=== PATIENT | female | born 1965 | race Caucasian/White ===

== ENCOUNTER 2019-01-07 16:11 | Inpatient (IN) ==
[2019-01-07] MEDS ORDERED: ASPIRIN PO ONE (17:49)
--- NOTE | 2019-01-07 18:39 | ED EKG INTERP ---
This chart was entered by Jena Billy Scribe, acting as scribe for Nish Davenport MD. EKG Interpretation - EKG Time of EKG reading by physician:: 17:06 EKG Read and Signed by:: Nish Davenport EKG Interpretation (*Must complete 3 of following elements*): Normal Rate: 89 (EARLY TRANSITION) Rhythm: NSR [place]: normal QRS: normal [place] Interval: normal ST Wave: normal Comments: DOC Attestation - Physician/ NORRIS Attestation Patient care was provided by Advanced Practice Provider:: No The physician spent face to face time with patient:: Yes Advanced Practice Provider documentation review:: Supervising physician onsite and consulted in the evaluation and care of this patient. The physician did have a face to face encounter with the patient. This chart was documented by the indicated scribe, (Jena Billy Scribe) and accurately reflects the services I performed and decisions made by , Nish Davenport MD, as attested by the provider's signature.
--- NOTE | 2019-01-07 18:58 | Diag Imaging Result Doc PS360 ---
EXAM: CHEST-2 VIEWS - 01/07/2019 HISTORY: Chest Pain TECHNIQUE: Chest two views COMPARISON: 10/30/2015 FINDINGS: Heart size is within normal limits. There is some tortuosity of the thoracic aorta. There are fractures of the lateral left third, fourth, and fifth ribs which do not appear to be healed and may be acute or subacute. There is fracture deformity of the posterior lateral right sixth rib appears subacute to chronic, but was not present on the prior exam. There is mild left lower lung linear atelectasis. Lungs otherwise appear clear. There is mild pleural thickening at the lateral left hemithorax. There is no pleural effusion or pneumothorax identified. IMPRESSION: Fracture deformities of lateral left third, fourth, and fifth ribs which may be acute or subacute. Correlation with clinical history and evaluation is recommended. Mild left lower lung linear scarring. No evidence of pneumothorax. Electronically signed by Flip Hernandez 01/07/2019 6:55 PM
--- NOTE | 2019-01-07 19:33 | EKG Report ---
Test Performed on : 01/07/2019 4:57:04 PM Test Reason : CP Blood Pressure : / mmHG Vent. Rate : 089 BPM Atrial Rate : 089 BPM P-R Int : 118 ms QRS Dur : 082 ms QT Int : 372 ms P-R-T Axes : 031 018 025 degrees QTc Int : 452 ms Normal sinus rhythm. Normal ECG When compared with ECG of 28-JAN-2018 15:09, Vent. rate has increased BY 29 BPM Unconfirmed Result
--- NOTE | 2019-01-07 20:03 | PROVIDER DOCUMENTATION ---
HPI-Abdominal Pain/GI Problem - General Chief Complaint: Epigastric Pain Stated Complaint: epigastric pain Time Seen by Provider: 01/07/19 19:07 Source: patient Allergies/Adverse Reactions: Patient Allergies Allergy/AdvReac Type Severity Reaction Status Date / Time aspirin AdvReac RASH Verified 01/07/19 22:17 levofloxacin [From Levaquin] AdvReac Unknown Verified 01/07/19 22:17 Home Medications: Home Medication List Medication Instructions Recorded Confirmed Last Taken Type Lisdexamfetamine Dimesylate 70 mg PO QAM 10/30/15 01/07/19 05/20/18 06:30 His tory [Vyvanse] Cyanocobalamin (Vitamin B-12) 1,000 mcg PO DAILY 01/28/18 01/07/19 05/20/18 0 6:30 History [Vitamin B-12] Propranolol [Inderal] 20 mg PO DAILY 01/28/18 01/07/19 05/20/18 06:30 History Venlafaxine [Effexor] 75 mg PO DAILY 01/28/18 01/07/19 05/20/18 12:00 History Pyridoxine HCl [Vitamin B-6] 200 mg PO DAILY 02/03/18 01/07/19 05/20/18 06:30 History Amphetamine Salts [Adderall] 10 mg PO DAILY 05/18/18 01/07/19 05/20/18 06:30 History Cholecalciferol (Vit D3) [Vitamin 5,000 unit PO DAILY 05/18/18 01/07/19 05/20/18 06:30 History D3] - History of Present Illness-ABD Nature of Presenting Problems: [id number] presents to the ER with c/o epigastric pain that radiates to her back. She states that it has been hurting for approx 1 month. Reports it hurts worse with eating. She states she has seen multiple providers that have ruled out cardiac and lung. She reports that she called to see her PCP again today because the pain was so bad, her PCP told her to come here instead. Abdominal Pain Onset Location: reports: RUQ, epigastric Pain Radiation: reports: back (between shoulder blades) Quality of Pain: reports: sharp, stabbing Severity in ED: reports: moderate Onset/Duration: reports: other (1 month) Timing: reports: intermittent (worse with eating) Review of Systems - Adult - REVIEW OF SYSTEMS - ADULT Constitutional: reports: see HPI. denies: chills, fever Eyes: reports: no symptoms reported Ears, Nose, Mouth & Throat: reports: no symptoms reported Cardiovascular: reports: no symptoms reported Respiratory: reports: no symptoms reported. denies: cough, dyspnea on exertion, shortness of breath, wheezing Gastrointestinal: reports: see HPI, abdominal pain, nausea Genitourinary: reports: no symptoms reported Musculoskeletal: reports: no symptoms reported Integumentary: reports: no symptoms reported Neurological: reports: no symptoms reported Psychiatric: reports: no symptoms reported Endocrine: reports: no symptoms reported Hematologic/Lymphatic: reports: no symptoms reported Allergic/Immunologic: reports: no symptoms reported All Other Systems: Reviewed and Negative Past History - Adult - PAST MEDICAL HISTORY-ADULT Review of Records: reports: Old Records Reviewed, Nursing Assessment Review, Medications Reviewed, Social history reviewed & non-contributory. Major Childhood Illnesses: reports: denies history Cardiovascular: reports: denies history Respiratory: reports: denies history Gastrointestinal: reports: denies history Obstetrical/Gynecological: reports: denies history Genitourinary: reports: denies history Musculoskeletal: reports: denies history Neurological: reports: denies history Endocrine/Immune: reports: denies history Other Conditions: reports: denies history - PRIOR SURGERIES/PROCEDURES Surgical/Procedure History: reports: hysterectomy - IMMUNIZATION STATUS Childhood Immunizations: See Nurse Assessment Flu Vaccine: See Nurse Assessment - FAMILY HISTORY Family History: reviewed, not pertinent - SOCIAL HISTORY Smoking: denies Substance Use: denies Living Situation: family Physical Exam-General - PHYSICAL EXAM-ADULT Initial Vital Signs Reviewed: Yes - CONSTITUTIONAL General Appearance: appears well, alert, no apparent distress - EYES Eyes: PERRL/EOMI, pink conjunctivae - HEAD, EARS, NOSE, MOUTH & THROAT HENMT: normocephalic/atraumatic, moist mucous membranes, normal ENT inspection, TMs normal - NECK Neck: non-tender, full range of motion, supple - RESPIRATORY Respiratory: chest non-tender, lungs clear, normal breath sounds - CARDIOVASCULAR Cardiovascular: normal peripheral pulses, regular rate, rhythm - GASTROINTESTINAL (ABDOMEN) Abdominal Exam: normal bowel sounds, soft, Caldwell's sign - LYMPHATIC Lymphatic: no adenopathy - MUSCULOSKELETAL Back Exam: normal inspection Extremity: normal range of motion, non-tender, normal gait - SKIN Integumentary: normal color, normal turgor, warm/dry - NEUROLOGIC Neurologic: medical records specialist II-XII nml as tested, grossly normal - PSYCHIATRIC Psych/Mental Status: normal mood/affect Progress - PLAN OF CARE/RESULTS Progress/Plan/Lab Results: Vital Signs - 8 hr 01/07/19 16:51 Temperature 97.6 F Pulse Rate 97 H Respiratory Rate 16 Blood Pressure 109/76 O2 Sat by Pulse Oximetry 98 Orders Category Date Time Status Cardiac Monitoring DIRECTED Care 01/07/19 17:49 Active Oxygen Therapy- ED Nursing DIRECTED Care 01/07/19 17:49 Active Saline Loc NOW Care 01/07/19 17:49 Active CHEST-2 VIEWS [RAD] Stat Exams 01/07/19 17:49 Completed CBC WITH ELECTRONIC DIFF [HEME] Stat Lab 01/07/19 17:49 Uncollected CK PROFILE [SP CHEM] Stat Lab 01/07/19 17:49 Uncollected COMPREHENSIVE METABOLIC PANEL [CHEM] Stat Lab 01/07/19 17:49 Uncollected PRO B-NATRIURETIC PEPTIDE Stat Lab 01/07/19 17:49 Uncollected PROTIME WITH INR [COAG] Stat Lab 01/07/19 17:49 Uncollected PTT [COAG] Stat Lab 01/07/19 17:49 Uncollected TROPONIN T Stat Lab 01/07/19 17:49 Uncollected Aspirin Med 01/07/19 17:49 Discontinued 325 mg PO NOW ONE CP/SOB/Palp >45 yrs of Age Stat Oth 01/07/19 17:49 Ordered EKG [EKG] Stat Ther 01/07/19 17:49 Draft patient verbalizes an understanding of POC and agrees with treatment rendered here today. Result Diagrams: 01/07/19 21:02 01/07/19 21:02 - REASSESSMENT Reassessment #1 Time Reassessed: 21:30 Status: improving (pain improved after morphine) - ULTRASOUND (By Radiology) 1 US Study: Gallbladder Impression: Abnormal (FINDINGS: According to the technologist, the patient was not nothing by mouth prior to the exam, which may limit evaluation of the gallbladder. The gallbladder hedrick appear thickened at 4.5 mm. There is no pericholecystic fluid identified. There are no gallstones identified. The technologist reports positive sonographic Caldwell's sign. The common bile duct is normal caliber at 5 mm. There are no abnormalities of the liver or right kidney identified. The pancreas is partially obscured by bowel gas artifacts, but visualized portions of the pancreas are unremarkable. IMPRESSION: Thickened gallbladder hedrick at 4.5 mm. No pericholecystic fluid. No evidence of gallstones. Findings are equivocal for cholecystitis. Correlation with clinical evaluation is recommended.), See EMR Report - CONSULTS/PCP/HOSPITALIST Notification #1 *Consult/PCP/Hospitalist*: Dr Olson Time Discussed: :19 Reason/Comments: Cholecystitis Consult Disposition: Admit Departure - Departure Date of Disposition Decision: 01/07/19 Time of Disposition Decision: 22:19 DIAGNOSIS: Cholecystitis Disposition: ADMITTED INPATIENT 09 Certified Medical Emergency: Emergent Condition: Critical Additional Freetext Instructions: ED Follow Up Instructions: You have been treated by a care provider in the Emergency Department. These instructions are being provided to you so you can have an understanding of how to care for yourself upon discharge. Upon discharge from the Emergency Department, you are responsible for making arrangements for follow-up care by a physician of your choice. Take all prescribed medications as directed. Return to the Emergency Department immediately for any new or worsening symptoms. You may call the Physician Referral phone number at [phone] to obtain a list of Physicians who are taking new patients. Referrals and Follow-Ups: Sabina Cao MD [Primary Care Provider] - - Critical Care Note This patient required my direct & personal management of CC.: No Attestation - Physician/ NORRIS Attestation Patient care was provided by Advanced Practice Provider:: Yes Advanced Practice Provider:: Norm Osborn (bib) Advanced Practice Provider documentation review:: The Mid-level provider documentation, treatment plan and medical decision making was reviewed by the physician who agrees with all treatment and medical decision making by the P. The physician spent face to face time with patient:: No Advanced Practice Provider documentation review:: Supervising physician onsite and consulted in the evaluation and care of this patient. The physician did not have a face to face encounter with the patient.
--- NOTE | 2019-01-07 20:53 | Diag Imaging Result Doc PS360 ---
EXAM: US GB < RUQ (LIMITED) - 01/07/2019 HISTORY: epigastric pain/+caldwell TECHNIQUE: Ultrasound gallbladder COMPARISON: None. FINDINGS: According to the technologist, the patient was not nothing by mouth prior to the exam, which may limit evaluation of the gallbladder. The gallbladder hedrick appear thickened at 4.5 mm. There is no pericholecystic fluid identified. There are no gallstones identified. The technologist reports positive sonographic Caldwell's sign. The common bile duct is normal caliber at 5 mm. There are no abnormalities of the liver or right kidney identified. The pancreas is partially obscured by bowel gas artifacts, but visualized portions of the pancreas are unremarkable. IMPRESSION: Thickened gallbladder hedrick at 4.5 mm. No pericholecystic fluid. No evidence of gallstones. Findings are equivocal for cholecystitis. Correlation with clinical evaluation is recommended. Electronically signed by Flip Hernandez 01/07/2019 8:51 PM
[2019-01-07 21:27] LABS: BASO# 0.05 X1000 (0.0-0.2); BASO% 0.5 % (0.0-0.8); EOS# 0.23 X1000 (0.0-0.7); EOS% 2.1 % (0.0-10.0); HEMATOCRIT 39.4 % (37.0-47.0); HEMOGLOBIN 12.5 g/dL (12.0-16.0); IMM GRAN# 0.04 X1000 (0.0-0.04); IMM GRAN% 0.4 % (0.0-0.5); LYMPH# 2.71 X1000 (1.2-3.4); LYMPH% 24.5 % (20.5-51.1); MCH 28.8 PG (27-31); MCHC 31.7 g/dL (33-37); MCV 90.8 FL (81-99); MONO# 0.96 X1000 (0.11-0.59); MONO% 8.7 % (1.7-9.3); MPV 10.3 FL (7.4-10.4); NEUT# 7.06 X1000 (1.4-6.5); NEUT% 63.8 % (42.2-75.2); PLT 365 X1000 (130-400); RBC 4.34 XMIL (4.2-5.4); RDW 14.8 % (11.5-14.5); WBC 11.05 X1000 (4.8-10.8)
[2019-01-07 21:44] LABS: AGAP 11; ALB/GLOB RATIO 1.4; ALBUMIN 4.4 g/dL (3.5-5.0); ALKALINE PHOSPHATASE 126 U/L (32-104); BUN 24 mg/dL (8-22); CHLORIDE 104 mmol/L (98-107); COSMO 289; CREATININE 0.7 mg/dL (0.5-0.9); ESTIMATED GFR > 60; GLUCOSE 94 mg/dL (70-104); GOT 22 U/L (10-30); GPT 16 U/L (10-36); POTASSIUM 3.7 mmol/L (3.5-5.1); SODIUM 143 mmol/L (136-145); TCO2 28 mmol/L (25-35); TOTAL BILIRUBIN 0.43 mg/dL (0.20-1.00); TOTAL PROTEIN 7.5 g/dL (6.3-8.3)
[2019-01-07] MEDS ORDERED: MORPHINE IV ONE (21:50)
[2019-01-07] MEDS ORDERED: NS 1,000 ML IV ONE (22:06)
[2019-01-07] MEDS ORDERED: DILAUDID IV PRN (22:06)
[2019-01-07 22:45] LABS: AMYLASE 44 U/L (20-200); LIPASE 29 U/L (13-60)
--- NOTE | 2019-01-08 11:57 | Diag Imaging Result Doc PS360 ---
EXAM: HIDA SCAN W/ EJECTION FRACTION INDICATION: cholecystitis TECHNIQUE: 5.2 mCi of technetium 99 Choletec was administered intravenously and images were obtained in usual fashion. COMPARISON: None. FINDINGS: There was normal immediate hepatocellular uptake after administration of the radiotracer. Activity is seen in the gallbladder beginning at about nine minutes post administration. After 41 minutes, no small bowel activity is identified. 8 ounces of liquid fatty meal was then administered orally. Prompt small bowel activity is identified after administration. The calculated gallbladder ejection fraction is 25%. IMPRESSION: Depressed gallbladder ejection fraction suggesting possible hypokinesis. Electronically signed by Abdulaziz Billy 01/08/2019 11:54 AM
[2019-01-08 12:02] VITALS: BP 127/71
--- NOTE | 2019-01-08 13:11 | HISTORY AND PHYSICAL ---
CHIEF COMPLAINT: Chest pain. HISTORY OF PRESENT ILLNESS: This is a 53-year-old female who describes a 2 month history of intermittent but frequent chest pain, also hurting in her left upper abdomen and around to her back. It is associated with nausea is becoming more frequent recently. She has seen her primary care physician and has undergone what sounds like at least a chest x-ray and an EKG, those were unrevealing. She was told by her primary physician to come to the emergency room yesterday. She denies vomiting, fever, chills, change in bowel habits or any worsening with eating. She gets relieved by lying on her right side with a pillow tucked behind her back. The symptoms seem to be worse at night rather than the daytime. She is eating without vomiting. PAST MEDICAL HISTORY: Narcolepsy, peptic ulcer disease, depression. HOME MEDICATIONS: Vyvanse, vitamin B12, Effexor, Inderal, vitamin B6, Adderall, vitamin D3. PAST SURGICAL HISTORY: Hysterectomy, bilateral carpal tunnel release, right total knee arthroplasty, left open reduction internal fixation of the 5th metatarsal. ALLERGIES: Aspirin, Levaquin. FAMILY HISTORY: Positive diabetes and hypertension. SOCIAL HISTORY: Negative tobacco, alcohol or illicit drug use. 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 REVIEW OF SYSTEMS: 10 systems were reviewed and negative except as above. PHYSICAL EXAMINATION: VITAL SIGNS: Temperature 98.3 degrees, pulse 56, respirations 17, blood pressure 109/69, O2 saturation 95%. GENERAL: Well-developed female who looks her stated age in no acute distress. HEENT: Normocephalic, atraumatic. Extraocular muscles intact. Pupils equal, round, reactive to light. Sclerae anicteric. Moist mucous membranes. NECK: Supple. No thyromegaly. CV: Regular rate and rhythm. RESPIRATORY: Clear bilateral breath sounds. No increased work of breathing. GASTROINTESTINAL: Soft, nondistended. She is obese. No organomegaly or mass. No hernias. She is tender across her upper abdomen without rebound or guarding. EXTREMITIES: No clubbing, cyanosis, or edema. SKIN: Warm and dry. No rash. MUSCULOSKELETAL: Moves all extremities equally and well. LABORATORY: White blood cell count 11,000, hemoglobin 12, hematocrit 39, platelet count 365,000. Complete metabolic profile reviewed notable only for alkaline phosphatase of 126. Amylase and lipase are normal. IMAGING: An abdominal ultrasound performed yesterday showed no gallstones but the hedrick were measured at about 4.5 mm. There was no pericholecystic fluid. The common bile duct is normal at 5 mm. There are no abnormalities of the liver, right kidney or portions of the pancreas that were visualized. Chest x-ray performed yesterday showed fracture deformities of the left lateral 3rd, 4th and 5th ribs which may be acute or subacute. ASSESSMENT AND PLAN: This is a 53-year-old female with chronic chest, back and upper abdominal pain of 2 months duration. The etiology is unclear but she is also noted to have several acute to subacute rib fractures on the left and she may have a thickened gallbladder wall consistent with cholecystitis. We will check a HIDA scan to check the function of the gallbladder. If that is normal then I will highly suspect the rib fractures as a source of her pain. Another potential differential diagnosis would be peptic ulcer disease. We will follow up her study today for further recommendations. cc: Klever Olson MD MTDD
[2019-01-08] MEDS ORDERED: NORCO-10 PO ONE (13:33)
--- NOTE | 2019-01-09 14:06 | DISCHARGE SUMMARY ---
ADMISSION DATE: 01/07/2019 DISCHARGE DATE: 01/08/2019 ADMITTING DIAGNOSIS: Abdominal pain, possible cholecystitis. DISCHARGE DIAGNOSIS: 1. Abdominal pain, possible cholecystitis. 2. Multiple rib fractures. HOSPITAL COURSE: The patient presented with a chronic history of chest pain, back pain, and upper abdominal pain. LABORATORY: Evaluation was fairly unremarkable. She had a mild leukocytosis and a mild elevation of alkaline phosphatase, but otherwise appeared normal. A chest x-ray revealed rib fractures in the left 3rd, 4th, and 5th ribs, and the right 6th. They appeared to be subacute to chronic. Abdominal ultrasound revealed a thickened gallbladder wall at 4.5 mm but no pericholecystic fluid and no stones. A HIDA scan showed a depressed ejection fraction of 25%. Around mid afternoon on 01/08/2019, the patient was hungry. She had some mild abdominal pain, nothing severe, and was only mildly tender. After she tolerated diet, we discharged her with plans for follow-up in 1 to 2 weeks. If she has persistent abdominal symptoms, we will plan laparoscopic cholecystectomy electively and I explained to her, her ribs will take time to heal. DISCHARGE MEDICATIONS: She will continue her home Vyvanse, vitamin B12, Effexor, Inderal, vitamin B6, Adderall, vitamin D3, a new prescription for [place] 7.5 mg 1 p.o. q. 6 hours p.r.n. pain. cc: MD Sabina Holder
== END 2019-01-08 15:50 | disposition home or self-care (01) | DRG 445 ==
LOC: ED 16:11 → 4N 23:40
PROVIDERS: ADMIT Surgery; ATTEND Surgery